=== PATIENT | female | born 1945 | race Caucasian/White ===

== ENCOUNTER → 2025-04-12 | Outpatient (CLI) | payer MEDICARE, OTHER ==
--- NOTE | 2025-04-12 20:39 | HMCSR ---
APPROVED REPORT EXAM: Two-dimensional and M-mode echocardiogram with Doppler and color Doppler. INDICATION ICD: dyspnea R06.09,R60.0 Localized edema,I49.3 Premature ventricular complexes I11.9, Hypertensive heart disease without heart failure 2D Dimensions RVDd2.6 cmLVEF(%)52.3 (>50%)LVED Vol(simp.)60.0 mL IVSd1.0 (0.7-1.1cm)FS(%)26 %LVES Vol(simp.)26.0 mL LVDd3.4 (3.8-5.6cm)LA (2D)3.7 (1.6-4.0cm)LVEF(%, simp.)56 % PWd0.8 (0.7-1.1cm)Ao Root(2D)3.3 (2.0-3.7cm)LA ESV INDEX (BP)18.70 mL/m2 IVSs1.0 cmLVOT diam2.2 (1.8-2.4cm) LVDs2.5 (2.5-4.0cm)IVC diam1.6 cm PWs1.0 cm M-Mode Dimensions EPSS0.8 cm LA (MM)3.4 (1.6-4.0cm) Ao Root(MM)3.5 (2.0-3.7cm) Aortic Valve AoV Vmax1.4 m/Marisa Peak GR7.4 mmHgLVOT Vmax1.0 m/s AoV VTI0.2 mAo Mean GR3.6 mmHgLVOT VTI0.19 m GOVIND (VMAX)2.76 cm2AVA (VTI) 3.4 cm2 Mitral Valve MV E Vmax52.4 cm/sDECEL Qyak831 ms MV A Vmax76.5 cm/sP 1/2 T31 ms E/A ratio0.7MVA (PHT)7.1 cm2 TDI E/E' Wyjstg92.3E/E' Lateral6.2 Medial E' Peak V5.08 cm/sLateral E' Peak V8.45 cm/s Pulmonary Valve PV Vmax1.0 m/sPV VTI0.19 mPV Mean GR2.7 mmHg PV Peak GR4.2 mmHg Tricuspid Valve TR Vmax3.1 m/sRAP (EST) 3 cuWsDMAF33.7 mmHg TR Peak GR37.7 mmHg Left Ventricle The left ventricle is normal size. There is normal LV segmental wall motion. Septal bounce suggestive of IVCD. There is normal left ventricular wall thickness. The LVEF is > 55%. Stage I diastolic dysfu nction. Right Ventricle The right ventricle is normal size. Right ventricular systolic function is mildly reduced. RV FAC 27% . Atria The left atrium size is normal. Atrial septum is bowed toward the left. The right atrium size is norm al. Aortic Valve The aortic valve is normal in structure. Trivial aortic regurgitation is present. There is no aortic valvular stenosis. Mitral Valve Mitral valve leaflets open well. Anterior mitral valve is leaflet is mildly prolapsed. There is trace of mitral valve regurgitation noted. There is no mitral valve stenosis. Tricuspid Valve The tricuspid valve is normal in structure. There is mild tricuspid valve regurgitation noted. RVSP m ildly elevated at 41 mmHg. Pulmonic Valve The pulmonary valve is normal in structure. There is no pulmonic valvular regurgitation. Great Vessels The aortic root is normal in size. The IVC is normal in size and collapses >50% with inspiration. Pericardium There is no pericardial effusion. Other Information Quality : Adequate Conclusion There is normal left ventricular wall thickness. There is normal LV segmental wall motion. Septal bounce suggestive of IVCD. The LVEF is > 55%. Stage I diastolic dysfunction. Right ventricular systolic function is mildly reduced. RV FAC 27%. There is mild tricuspid valve regurgitation noted. RVSP mildly elevated at 41 mmHg. There is trace of mitral valve regurgitation noted. There is no pericardial effusion.
== END | disposition home or self-care (01) ==
LOC: RAH 13:48
PROVIDERS: ATTEND Family Medicine
DX: I07.1 Rheumatic tricuspid insufficiency (principal); I11.9 Hypertensive heart disease without heart failure; I49.3 Ventricular premature depolarization; R06.09 Other forms of dyspnea; R60.0 Localized edema
CPT/HCPCS: 93306

== ENCOUNTER → 2025-08-29 | Outpatient (CLI) | payer MEDICARE, OTHER ==
[~2025-08-29] MED LIST: IOHEXOL 350 MG/ML 100ML INFUS..BTL IV ONE
--- NOTE | 2025-09-07 21:11 | CARDIOLOGY ---
RAD REPORT: CORNARY CT ANGIO RADIOLOGY REPORT: CORONARY CT ANGIOGRAPHY DATE: Sep 07, 2025 QUALITY: Excellent CLINICAL HISTORY AND INDICATION: [ chest pain ] TECHNIQUE: After obtaining a preliminary ethnoarchaeologist image, contrast imaging performed on an [employer] [id number] scanner. A dedicated, limited window, coronary imaging protocol was used, with single breath-hold, retrospective ECG gating, and automated arrhythmia rejection. 100 cc of low osmolar contrast agent: Omnipaque 350 was delivered via a 18-gauge IV catheter in the right antecubital fossa, using a power injector and followed by 60 cc of normal saline bolus as a chaser. Collimated images were reformatted at 0.5 mm intervals, and sent to an offline independent workstation for interpretation, using 3D anatomic reconstructions: Curved multiplanar reconstructions, maximum intensity projections, and multiplanar imaging. 10 mg IV metoprolol was administered prior to scanning. No SL nitroglycerin was given. CORONARY ARTERY DESCRIPTIONS: The coronary arteries arise in normal position. Left main coronary artery: Normal caliber vessel that bifurcates into the LAD a nd LCx. No stenosis. Left anterior descending coronary artery: Normal caliber vessel and gives rise to diagonal and septal branches. Left circumflex coronary artery: Normal caliber, nondominant. Right coronary artery: Large, dominant vessel giving rise to the PL and PDA branches. Patient had difficulty with breath holding during exam, which created motion artifact. Recommend different testing modality for CAD. Thoracic Aorta: Normal diameter. Prudence Carpio MD Cardiovascular Disease [facility] PRUDENCE CARPIO MD Sep 07, 2025 21:11
== END | disposition home or self-care (01) ==
LOC: RAH 08:49
PROVIDERS: ATTEND Internal Medicine Cardiovascular Disease
DX: I25.10 Atherosclerotic heart disease of native coronary artery without angina pectoris (principal); R06.02 Shortness of breath
CPT/HCPCS: 75574; J3490; Q9967